=== PATIENT | male | born 1990 | race Two or more races ===

== ENCOUNTER 2022-10-24 14:17 | Emergency (ER) | payer MEDICAID, OTHER ==
[~2022-10-24] VITALS: Ht 167.6 cm; Wt 86.1 kg
[2022-10-24 15:22] VITALS: BP 138/96
[2022-10-24] MEDS ORDERED: KETOROLAC TROMETH 30 MG/ML 1ML VIAL IM ONE (15:30)
[2022-10-24] MEDS ORDERED: CYCL-839 PO (16:07)
[2022-10-24] MEDS ORDERED: IBUP1TAB5 PO (16:07)
[2022-10-24] MEDS ORDERED: HYDROcodone-ACET 5/325MG TAB PO ONE (16:15)
== END 2022-10-24 16:34 | disposition home or self-care (01) ==
LOC: ER 14:17
DX: M79.661 Pain in right lower leg (principal); Z98.890 Other specified postprocedural states; Z79.1 Long term (current) use of non-steroidal anti-inflammatories (NSAID); Z79.899 Other long term (current) drug therapy
CPT/HCPCS: 93971; 96372; 99285; J1885